=== PATIENT | male | born 2005 | race Caucasian/White ===

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

== ENCOUNTER 2024-07-07 22:41 | Emergency (ER) | payer OTHER ==
[2024-07-07 22:46] VITALS: RESP 18; TEMP 98.5
--- NOTE | 2024-07-07 23:14 | ED ---
General Adult HPI - General Chief complaint: Dental/Oral Stated complaint: Jaw Pain Time Seen by Provider: 07/07/24 23:05 Source: patient, RN notes reviewed, old records reviewed Mode of arrival: ambulatory Limitations: no limitations - History of Present Illness Initial comments: Patient is a 19-year-old male who presents emergency department complaining of dental pain. States he has left-sided dental pain in the upper and lower teeth with some mild swelling. No obvious abscess or discharge. No redness. No fevers or chills. No difficulty swallowing or breathing. Presents for further evaluation at this time. Is due to see a dentist but soonest appointment is in 4 months. Symptoms have been ongoing for multiple days. - Related Data Home Medications Medication Instructions Recorded Confirmed Albuterol Nebulized [Ventolin 2.5 mg INHALATION QID PRN 09/15/13 09/15/13 Nebulized] Beclomethasone Dipropionate [Qvar 2 puff INHALATION BID 09/15/13 09/15/13 40 mcg/puff] Lisdexamfetamine Dimesylate 30 mg PO QAM 09/15/13 09/15/13 [Vyvanse] Montelukast Chew [Singulair] 5 mg PO DAILY 09/15/13 09/15/13 cloNIDine HCL [Catapres] 0.2 mg PO HS 09/15/13 09/15/13 Previous Rx's Medication Instructions Recorded Albuterol Inhaler [Ventolin 2 puff INHALATION Q6HR PRN #1 09/15/13 Inhaler] inhaler Albuterol Nebulized [Ventolin 2.5 mg INHALATION Q6H #20 nebu 09/15/13 Nebulized] Beclomethasone Dipropionate [Qvar 2 puff INHALATION BID #1 inhaler 09/15/13 40 mcg/puff] prednisoLONE [Prelone Syrup] 5 ml PO BID 7 Days ml 09/15/13 clindamycin HCL 300 mg PO Q6H 7 Days #28 cap 07/07/24 Allergies Allergy/AdvReac Type Severity Reaction Status Date / Time Penicillins Allergy Unknown Verified 07/07/24 22:46 Childhood Review of Systems ROS Statement: Those systems with pertinent positive or pertinent negative responses have been documented in the HPI. Review of Systems: CONST: Denies fever EYES: Denies blurry vision ENT: Endorses dental pain C/V: Denies Chest pain RESP: Denies shortness of breath GI: Denies abdominal pain : Denies dysuria SKIN: Denies rash. MSK: Denies joint pain. NEURO: Denies headache ROS Other: All systems not noted in ROS Statement are negative. Past Medical History Past Medical History: Asthma, Eye Disorder Additional Past Medical History / Comment(s): RSV/ asthma, ADHD, and wears glasses. History of Any Multi-Drug Resistant Organisms: None Reported Past Surgical History: No Surgical Hx Reported Additional Past Surgical History / Comment(s): none Past Anesthesia/Blood Transfusion Reactions: No Reported Reaction Additional Past Anesthesia/Blood Transfusion Reaction / Comment(s): no hx of anesthesia, no family hx of problems Past Psychological History: ADD/ADHD Smoking Status: Current every day smoker Past Alcohol Use History: None Reported Past Drug Use History: Marijuana General Exam - General Exam Comments Initial Comments: General: Appears in no acute distress. HEAD: Normal with no signs of head trauma. EYES: EOMI. ENT: Hearing grossly intact. No stridor. No floor the mouth swelling. Uvula is midline. No tongue edema. Cracked tooth in the left upper molar which is chronic per patient. No obvious abscess. No obvious infection. RESPIRATORY: No respiratory distress. C/V: Regular rate and rhythm. ABD: Abdomen is nondistended. EXT: No obvious deformity. SKIN: No rashes or lesions observed on exposed skin. NEURO: Alert and oriented. Limitations: no limitations Course Vital Signs 07/07/24 07/07/24 22:43 23:30 Temperature 98.5 F 98.5 F Pulse Rate 58 L 64 Respiratory 18 18 Rate Blood Pressure 142/84 136/78 O2 Sat by Pulse 99 99 Oximetry Medical Decision Making - Medical Decision Making Was pt. sent in by a medical professional or institution (, PA, HAM [employer]ER, urgent care, hospital, or detention...) When possible be specific @ -No Did you speak to anyone other than the patient for history (EMS, parent, family, police, friend...)? What history was obtained from this source @ -No Did you review nursing and triage notes (agree or disagree)? Why? @ -I reviewed and agree with nursing and triage notes Were old charts reviewed (outside hosp., previous admission, EMS record, old EKG, old radiological studies, urgent care reports/EKG's, detention records)? Report findings @ -No old charts were reviewed Differential Diagnosis (chest pain, altered mental status, abdominal pain women, abdominal pain men, vaginal bleeding, weakness, fever, dyspnea, syncope, headache, dizziness, GI bleed, back pain, seizure, CVA, palpatations, mental health, musculoskeletal)? @ -Dental pain, tooth ache, cavity. This list is not all inclusive. EKG interpreted by me (3pts min.). @ -None done X-rays interpreted by me (1pt min.). @ -None done CT interpreted by me (1pt min.). @ -None done U/S interpreted by me (1pt. min.). @ -None done What testing was considered but not performed or refused? (CT, X-rays, U/S, labs)? Why? @ -None What meds were considered but not given or refused? Why? @ -None Did you discuss the management of the patient with other professionals (professionals i.e. , PA, H[employer] MARKER, lab, RT, psych nurse, web content & social media manager, fire alarm mechanic, teacher, customer service security officer, mental health case manager)? Give summary @ -No Was smoking cessation discussed for >3mins.? @ -No Was critical care preformed (if so, how long)? @ -No Were there social determinants of health that impacted care today? How? (Homelessness, low income, unemployed, alcoholism, drug addiction, transportation, low edu. Level, literacy, decrease access to med. care, long term, rehab)? @ -No Was there de-escalation of care discussed even if they declined (Discuss DNR or withdrawal of care, Hospice)? DNR status @ -No What co-morbidities impacted this encounter? (DM, HTN, Smoking, COPD, CAD, Cancer, CVA, ARF, Chemo, Hep., AIDS, mental health diagnosis, sleep apnea, morbid obesity)? @ -None Was patient admitted / discharged? Hospital course, mention meds given and route, prescriptions, significant lab abnormalities, going to OR and other pertinent info. @ -Patient presents with dental pain. No concern for Quique's angina. Tolerating oral secretions. No concern for airway compromise. Mild swelling of the left jaw. Exam is relatively unremarkable otherwise. I discussed with the patient and recommended follow-up with a oral surgeon or dentist. He will be initiated on antibiotic therapy prior to discharge, clindamycin as he is allergic to penicillins. Patient will also receive a dose of Decadron as well as a starter pack Tylenol 3. Patient was in agreement this plan. No imaging or further workup required at this time. Strict return precautions discussed. I instructed the patient to follow up with their PCP in the next 1-3 days. I explained that the patient should return to the emergency department if they ex perience any worsening symptoms. Strict return precautions were discussed with the patient. The patient expressed understanding of these instructions. I answered all questions that the patient had. The patient was discharged home in good condition with their prescriptions and follow up information. Undiagnosed new problem with uncertain prognosis? @ -No Drug Therapy requiring intensive monitoring for toxicity (Heparin, Nitro, Insulin, Cardizem)? @ -No Were any procedures done? @ -No Diagnosis/symptom? @ -Toothache Acute, or Chronic, or Acute on Chronic? @ -Acute Uncomplicated (without systemic symptoms) or Complicated (systemic symptoms)? @ -Uncomplicated Side effects of treatment? @ -No Exacerbation, Progression, or Severe Exacerbation? @ -No Poses a threat to life or bodily function? How? (Chest pain, [place], NH, pneumonia, PE, COPD, DKA, ARF, appy, cholecystitis, CVA, Diverticulitis, Homicidal, Suicidal, threat to staff... and all critical care pts) @ -Unlikely at this time Disposition Clinical Impression: Toothache Disposition: HOME SELF-CARE Condition: Good Instructions (If sedation given, give patient instructions): Toothache (ED) Additional Instructions: Follow-up with oral surgeon or dentist as soon as possible. Return to the ER if any concern for worsening difficulty in breathing or swallowing or worsening infection. Prescriptions: clindamycin HCL 300 mg PO Q6H 7 Days #28 cap Is patient prescribed a controlled substance at d/c from ED?: Yes When asked, does pt state using other controlled substances?: Yes If prescribed controlled substance>3 days was MAPS reviewed?: Prescribed <3 Days If opioid is for acute pain is fill amount 7 days or less?: Yes If Rx opioid, was Start Talking consent form obtained?: Yes Referrals: None,Stated [Primary Care Provider] - 1-2 days [facility] [STAFF PHYSICIAN] - 1-2 days Time of Disposition: 23:14
[2024-07-07] MEDS: CLINDAMYCIN 150 MG CAP PO STA (23:17)
[2024-07-07] MEDS: dexAMETHasone 4 MG TAB PO STA (23:17)
[2024-07-07] MEDS: ACET/COD 300 MG/30 MG STARTER PACK 6 TAB BTL PO STA (23:18)
[2024-07-07] MEDS: HYDROcodone/APAP 5-325MG 1 EACH TAB PO STA (23:18)
[2024-07-07 23:33] VITALS: BP 136/78; PULSE 64
== END 2024-07-07 23:33 | disposition home or self-care (01) ==
LOC: EC 22:41
DX: K03.81 Cracked tooth (principal); F17.200 Nicotine dependence, unspecified, uncomplicated; Z88.0 Allergy status to penicillin
CPT/HCPCS: 99283; J8540